=== PATIENT | male | born 1990 | race African-American/Black ===

== ENCOUNTER 2018-11-14 13:50 | Emergency (ER) | payer OTHER ==
--- NOTE | 2018-11-24 08:38 | ED Physician Chart ---
ED Chief Complaint/HPI - Patient Information Date Seen:: 11/14/18 Time Seen:: 14:01 Chief Complaint:: total body pain History of Present Illness:: total body pain PATIENT PRESENTS TO THE ER WITH HX OF GENERALIZED BODY ACHES FOR ONE HOUR; NO TRAUMA, NO OTHER REMARKABLE S/S; PATIENT SUSPECTS A SICKLE CELL REACTION he wants us to give him Dilaudid in his yvette cath and then let him go on a bus and go home. I called his PCP's office to confirm that he has sickle cell. They said that he does, but they also said that they referred him to a chronic pain clinic 2 months ago. According to the patient, he has never gone. Allergies:: Allergies Allergy/AdvReac Type Severity Reaction Status Date / Time morphine Allergy Verified 11/14/18 13:59 ondansetron [From Zofran] Allergy Verified 11/14/18 13:59 Historian:: Patient Review:: Nurse's Note Reviewed ED Review of Systems - Review of Systems General/Constitutional: No fever, No chills, No weakness, No diaphoresis, No edema, No loss of appetite, Other (total body pain, requesting Dilaudid.) Skin: No skin lesions, No rash, No bruising Head: No headache, No light-headedness Eyes: No loss of vision, No pain, No diplopia ENT: No earache, No nasal drainage, No sore throat, No tinnitus Neck: No neck pain, No swelling, No thyromegaly, No stiffness, No mass noted Cardio Vascular: No chest pain, No palpitations, No PND, No orthopnea, No edema Pulmonary: No SOB, No cough, No sputum, No wheezing GI: No nausea, No vomiting, No diarrhea, No pain, No melena, No hematochezia, No constipation, No hematemesis G/U: No dysuria, No frequency, No hematuria Musculoskeletal: No bone or joint pain, No back pain, No muscle pain Endocrine: No polyuria, No polydipsia Psychiatric: No prior psych history, No depression, No anxiety, No suicidal ideation Hematopoietic: No bruising, No lymphadenopathy Allergic/Immuno: No urticaria, No angioedema Neurological: No syncope, No focal symptoms, No weakness, No paresthesia, No headache, No seizure, No dizziness, No confusion, No vertigo ED Past Medical History - Past Medical History Obtainable: No Family Medical History - Family Member Mother History Unknown: Yes ED Physical Exam - Physical Examination General/Constitutional: Awake, Well-developed, well-nourished, Alert, No distress, GCS 15, Non-toxic appearing, Ambulatory Head: Atraumatic Eyes: Lids, conjuctiva normal, PERRL, EOMI Skin: Nl inspection, No rash, No skin lesions, No ecchymosis, Well hydrated, No lymphadenopathy ENMT: External ears, nose nl Neck: Nontender, Full ROM w/o pain, No JVD, No nuchal rigidity, No bruit, No mass, No stridor Respiratory: Nl effort/Exclusion, Clear to Auscultation, No Wheeze/Rhonchi/Rales Cardio Vascular: RRR, No murmur, gallop, rubs, NL S1 S2 Other Cardio Vascular comments:: Right chest yvette cath. GI: No tenderness/rebounding/guarding, No organomegaly, No hernia, Normal BS's, Nondistended, No mass/bruits, No McBurney tenderness : No CVA tenderness Extremities: No tenderness or effusion, Full ROM, normal strength in all extremities, No edema, Normal digits & nails Neuro/Psych: Alert/oriented, Normal sensory exam, Normal motor strength, Judgement/insight normal, Mood normal, Normal gait, No focal deficits Misc: Normal back, No paraspinal tenderness ED Assessment - Assessment General Assessment: Moi, the charge nurse, tried to explain to the patient that we would not be giving him Dilaudid and letting him get a on a bus home. Patient kept on insisting that other emergency rooms did this for him and insisting that he wanted Dilaudid. ED Septic Shock - . Is Septic Shock (SBP<90, OR Lactate>4 mmol\L) present?: No ED Reassessment (Disposition) - Reassessment Reassessment Condition:: Unchanged - Diagnosis Diagnosis:: Sickle cell anemia Drug seeking behavior. - Patient Disposition Discharge/Transfer:: Elope/AWOL Condition at Disposition:: Stable, Unchanged
== END 2018-11-14 14:20 | disposition left against medical advice (07) ==
LOC: ER 13:50
DX: D57.1 Sickle-cell disease without crisis (principal); Z76.5 Malingerer [conscious simulation]; Z88.5 Allergy status to narcotic agent; Z88.8 Allergy status to other drugs, medicaments and biological substances
CPT/HCPCS: Z7502